=== PATIENT | female | born 1960 | race Caucasian/White ===

== ENCOUNTER → 2017-05-20 | Outpatient (CLI) | payer OTHER | LOC: M RAD 14:51 | DX: J31.0 Chronic rhinitis (principal) ==

== ENCOUNTER → 2021-04-07 | Outpatient (CLI) | payer OTHER ==
[~2021-04-07] MED LIST: DOXY-342 PO; EMTR1TAB16 PO; METH-1164 PO; METR-265 PO; RALT40TA PO
== END ==
LOC: M WUC 08:49
PROVIDERS: ATTEND Nurse Practitioner Family
DX: M25.511 Pain in right shoulder (principal); M25.711 Osteophyte, right shoulder

== ENCOUNTER 2021-06-11 10:39 | Emergency (ER) | payer OTHER ==
[~2021-06-11] VITALS: Ht 162.6 cm; Wt 69.0 kg
[~2021-06-11 10:39] MED LIST changes: -DOXY-342 PO; -EMTR1TAB16 PO; -METR-265 PO; -RALT40TA PO; +RALTEGRAVIR 400 MG TAB (ISENTRESS) PO SCH
[2021-06-11] MEDS ORDERED: metroNIDAZOLE (FLAGYL) 500MG TABLET PO ONE (11:05)
[2021-06-11] MEDS ORDERED: LIDOCAINE 1% SDV 5ML VIAL DILUENT ONE (11:05)
[2021-06-11] MEDS ORDERED: HEPATITIS B VACCINE 20MCG/ML 1ML SYRINGE (ADULT DOSE) IM ONE (11:05)
[2021-06-11] MEDS ORDERED: cefTRIAXone 500MG VIAL (J0696 PER 250MG) IM ONE (11:05)
[2021-06-11] MEDS ORDERED: BOOSTRIX/ADACEL VACCINE (DIPHTH/PERTUSS/ACELL/TETANUS) 0.5ML SYR IM ONE (11:05)
[2021-06-11] MEDS ORDERED: HEPATITIS B IMMUNE GLOBULIN 5ML INJ IM ONE (11:05)
[2021-06-11] MEDS ORDERED: EXPOSURE KIT-ADULT 7 DAY SUPPLY PO ONE (11:05)
[2021-06-11] MEDS ORDERED: DOXYCYCLINE HYCLATE 100MG TABLET PO ONE (11:05)
[2021-06-11] MEDS ORDERED: TRUVADA 200MG/300MG TABLET PO ONE (11:30)
[2021-06-11] MEDS ORDERED: RALTEGRAVIR 400 MG TAB (ISENTRESS) PO ONE (11:30)
[2021-06-11 12:06] LABS: BASO % 0.2 % (0.0-1.0); EOS % 0.4 % (0.0-3.0); HEMATOCRIT 44.3 % (36.0-47.0); HEMOGLOBIN 15.1 g/dl (12.0-15.5); LYMPH % 20.9 % (24.0-44.0); MEAN CORPUSCULAR HEMOGLOBIN 30.3 pg (27.0-33.0); MEAN CORPUSCULAR HGB CONC 34.1 g/dl (32.0-36.5); MONO # 0.4 10^3/uL (0.0-0.8); MONO % 4.4 % (2.0-8.0); NEUTROPHILS % 73.7 % (36.0-66.0); PLATELET COUNT, AUTOMATED 227 10^3/uL (150-450); RED BLOOD COUNT 4.98 10^6/uL (4.00-5.40); WHITE BLOOD COUNT 9.6 10^3/uL (4.0-10.0)
[2021-06-11] MEDS ORDERED: METR-265 PO (12:21)
[2021-06-11] MEDS ORDERED: RALT40TA PO (12:21)
[2021-06-11] MEDS ORDERED: DOXY-342 PO (12:21)
[2021-06-11] MEDS ORDERED: EMTR1TAB16 PO (12:21)
[2021-06-11 12:34] LABS: ALT/SGPT 26 U/L (12-78); BILIRUBIN,TOTAL 0.3 MG/DL (0.2-1.0); BLOOD UREA NITROGEN 11 MG/DL (7-18); CALCIUM LEVEL 9.4 MG/DL (8.8-10.2); CARBON DIOXIDE LEVEL 26 MEQ/L (21-32); CHLORIDE LEVEL 104 MEQ/L (98-107); GLOMERULAR FILTRATION RATE > 60.0 (>45); GLUCOSE, FASTING 357 MG/DL (70-100); POTASSIUM SERUM 3.8 MEQ/L (3.5-5.1); SODIUM LEVEL 138 MEQ/L (136-145); TOTAL PROTEIN 6.3 GM/DL (6.4-8.2)
[2021-06-11 14:55] VITALS: BP 146/84
[2021-06-12] MEDS ORDERED: TRUVADA 200MG/300MG TABLET PO SCH
[2021-06-12 11:57] LABS: HEPATITIS B SURFACE ANTIBODY NEGATIVE (POSITIVE)
[2021-06-12 12:08] LABS: HEPATITIS B SURFACE ANTIGEN NEGATIVE (NEGATIVE)
[2021-06-12 12:37] LABS: HIV 1&2 SCREEN CENTAUR NEGATIVE (NEGATIVE)
== END 2021-06-11 15:11 | disposition home or self-care (01) ==
LOC: M ED 10:39
DX: S30.814A Abrasion of vagina and vulva, initial encounter (principal); T74.21XA Adult sexual abuse, confirmed, initial encounter; Y07.9 Unspecified perpetrator of maltreatment and neglect; Y92.018 Other place in single-family (private) house as the place of occurrence of the external cause; I10 Essential (primary) hypertension; E11.9 Type 2 diabetes mellitus without complications; Z79.899 Other long term (current) drug therapy; Z79.84 Long term (current) use of oral hypoglycemic drugs; F17.210 Nicotine dependence, cigarettes, uncomplicated
CPT/HCPCS: 36415; 80053; 85025; 86592; 86706; 86780; 86803; 87340; 87389; 90371; 90471; 90715; 90746; 96372; 99283; J0696

== ENCOUNTER → 2021-10-11 | Outpatient (REF) | payer OTHER ==
[~2021-10-11] MED LIST changes: +DOXY-342 PO; +EMTR1TAB16 PO; +METR-265 PO; +RALT40TA PO; -RALTEGRAVIR 400 MG TAB (ISENTRESS) PO SCH
[2021-10-11 18:10] LABS: CREATININE, URINE 19.3 MG/DL
== END ==
LOC: M LAB REF 16:50
PROVIDERS: ATTEND Nurse Practitioner Family
DX: E11.65 Type 2 diabetes mellitus with hyperglycemia (principal)

== ENCOUNTER → 2022-12-18 | Outpatient (CLI) | payer OTHER ==
[~2022-12-18] MED LIST changes: -DOXY-342 PO; +DOXY100C82 PO
== END ==
LOC: M RAD 08:29
PROVIDERS: ATTEND Family Medicine
DX: Z87.891 Personal history of nicotine dependence (principal); M51.36 Other intervertebral disc degeneration, lumbar region

== ENCOUNTER 2023-04-02 18:53 | Emergency (ER) | payer OTHER ==
[2023-04-02] MEDS ORDERED: EPINEPHrine 1MG/10ML SYRINGE 1.5IN ONE (18:54)
[2023-04-02] MEDS ORDERED: AMIODARONE 150MG/3ML VIAL ONE (18:54)
[2023-04-02] MEDS ORDERED: CALCIUM CHLORIDE 10% 1 GM/10 ML SYR ONE (18:54)
[2023-04-02] MEDS ORDERED: SODIUM BICARBONATE 8.4% INJ 50ML SYRINGE ONE (18:54)
[2023-04-02] MEDS ORDERED: ETOMIDATE INJ 20MG/10ML VIAL ONE (18:54)
[2023-04-02] MEDS ORDERED: SUCCINYLCHOLINE 100MG/5ML SYRINGE ONE (18:54)
== END 2023-04-02 23:18 | disposition expired ==
LOC: M ED 18:53
DX: I46.9 Cardiac arrest, cause unspecified (principal); E11.9 Type 2 diabetes mellitus without complications; E78.5 Hyperlipidemia, unspecified; K21.9 Gastro-esophageal reflux disease without esophagitis; I10 Essential (primary) hypertension; J44.9 Chronic obstructive pulmonary disease, unspecified
CPT/HCPCS: 31500; 92950; 99285; J0171; J0282; J0330